=== PATIENT | female | born 1960 | race Two or more races ===

== ENCOUNTER 2022-04-08 03:49 | Emergency (ER) | payer MEDICAID, OTHER ==
[~2022-04-08] VITALS: Ht 167.6 cm; Wt 68.0 kg
[2022-04-08] MEDS ORDERED: HALOPERIDOL LACTATE INJ 5 MG/ML VIAL ONE (03:59)
[2022-04-08] MEDS ORDERED: HALOPERIDOL LACTATE INJ 5 MG/ML VIAL IM ONE (04:00)
--- NOTE | 2022-04-08 04:16 | NUR ---
bernardo from home to er bed 14. aaox4. not in resp distress, breathing even and unlabored. brought in for being agitated and having acute psychosis. pt is noted crying, then will yell for his some and emeotional outburst. Pt is cooperative, compliant and redirectable. per ems report, pt had a recent psych medication change. md was at the bedside. orders received, noted and carried out.
[2022-04-08 04:40] LABS: BASOPHILS % (AUTO) 0.3 % (0.0-2.0); EOSINOPHILS % (AUTO) 3.2 % (0.0-6.0); HEMATOCRIT 41 % (33-45); HEMOGLOBIN 13.4 g/dL (11.5-14.8); LYMPHOCYTES # (AUTO) 3.2 K/uL (0.8-4.8); LYMPHOCYTES % (AUTO) 49.1 % (20.0-44.0); MEAN CORPUSCULAR HGB CONC 33 g/dl (31.0-36.0); MEAN CORPUSCULAR VOLUME 94 fL (82-100); MONOCYTES # (AUTO) 0.5 K/uL (0.1-1.30); MONOCYTES % (AUTO) 8.1 % (2.0-12.0); NEUTROPHILS # (AUTO) 2.6 K/uL (1.8-8.9); NEUTROPHILS % (AUTO) 39.3 % (43.0-81.0); PLATELET COUNT (AUTO) 188 K/uL (150-450); RED BLOOD CELL COUNT(AUTO) 4.32 MIL/uL (4.0-5.2); WHITE BLOOD COUNT (AUTO) 6.5 K/uL (4.3-11.0)
[2022-04-08 04:41] LABS: BILIRUBIN,URINE NEGATIVE (NEGATIVE); COLOR,URINE YELLOW (YELLOW); LEUKOCYTE ESTERASE ,URINE SMALL (NEGATIVE); NITRITE, URINE NEGATIVE (NEGATIVE); PH,URINE 5.5 (5.0-8.0); PROTEIN,URINE NEGATIVE (NEGATIVE); UGLUCOSE >=1000 mg/dL (NEGATIVE); UROBILINOGEN,URINE 0.2 EU/dL (0.2)
[2022-04-08 04:58] LABS: CALCIUM, SERUM 8.8 mg/dL (8.5-10.1); POTASSIUM 3.7 mmol/L (3.5-5.1)
[2022-04-08 05:01] LABS: BILIRUBIN,DIRECT 0.1 mg/dL (0.0-0.2); BILIRUBIN,TOTAL 0.2 mg/dL (0.2-1.0); TOTAL PROTEIN, SERUM 7.1 g/dL (6.4-8.2)
[2022-04-08 05:22] LABS: BACTERIA,URINE Few /HPF (None Seen); RBC,URINE 0-2 /HPF (0-2); SQUAMOUS EPITHELIAL CELL,UR Moderate /HPF (None Seen)
--- NOTE | 2022-04-08 07:00 | NUR ---
pt's friend Sobe came by to drop off pt's phone. phone is the patient chart.
--- NOTE | 2022-04-08 09:14 | NUR ---
PT CHANGED TO GOWN AND ASSISTED TO THE BATHROOM.
[2022-04-08 11:08] VITALS: BP 110/66
--- NOTE | 2022-04-08 11:09 | NUR ---
Patient discharged to home in stable condition. Written and verbal after care instructions given. Patient verbalizes understanding of instruction.
--- NOTE | 2022-04-08 14:13 | NUR ---
Pt. is a 61-year-old female who was admitted to [facility] on 04/08/2022 due to behavior. Upon SS consult, pt. is alert and oriented x2 (time and self). Pt. could not state where she was. Pt. could not state the situation that brought her into the hospital. Pt. appeared unkempt and did not provide appropriate eye contact. Pt. appeared tired. Pt. was cooperative during the interview. digital sales planner explored pt.s social support. Pt. sated she currently lives at [address] [place] [address]. Pt. stated she was visiting her friend Caty but could not provide contact information or address. digital sales planner explored if pt. was ambulatory. Pt. stated she is ambulatory and uses a cane occasionally. digital sales planner explored pt.s financial situation. Pt. stated that she receives food stamps and electronic benefit transfer. digital sales planner explored pt.s substance use hx. Pt. stated she drank last night. Per toxicology, pt.s alcohol level was high. Pt. stated she usually doesnt drink heavily. digital sales planner offered pt. addiction resources and pt. denied. Pt. stated she has a therapist and a psychiatrist in [place]. digital sales planner explored pt.s psychiatric history. Pt. stated she has been diagnosed with SI tendencies and depression. Pt. denied current suicidal ideation and homicidal ideation. Pt. denied current visual and auditory hallucinations. Plan: Upon discharge, pt. will return to her friends house Caty. Pt. was unable to provide address
== END 2022-04-08 11:09 | disposition home or self-care (01) ==
LOC: ER 03:51
DX: F31.9 Bipolar disorder, unspecified (principal); F10.129 Alcohol abuse with intoxication, unspecified; Y90.8 Blood alcohol level of 240 mg/100 ml or more; Z20.822 Contact with and (suspected) exposure to COVID-19
CPT/HCPCS: 99284; 96372; 85025; 80048; 87086; 80076; 81001; 36415; 87426; 80143; 80320; 80307; J1630; C9803; G0480